=== PATIENT | female | born 2000 | race Caucasian/White ===

== ENCOUNTER 2022-05-05 10:26 | Emergency (ER) | payer SELFPAY ==
[2022-05-05 11:39] LABS: CARBON DIOXIDE,CO2 28.4 mmol/L (21.0-32.0)
[2022-05-05] MEDS ORDERED: Ketorolac 30 MG/ML SDV IVPUSH ONE (12:00)
== END 2022-05-05 13:54 | disposition home or self-care (01) ==
LOC: MW.ED 10:26
DX: N13.2 Hydronephrosis with renal and ureteral calculous obstruction (principal)
CPT/HCPCS: 36415; 74176; 80048; 81001; 81025; 85027; 87086; 96374; 99284; J1885